=== PATIENT | female | born 1940 | race Caucasian/White ===

== ENCOUNTER → 2016-12-07 | Outpatient (CLI) | payer OTHER | END | disposition home or self-care (01) | LOC: C.PAPS 12:44 | PROVIDERS: ATTEND Obstetrics & Gynecology | DX: Z01.419 Encounter for gynecological examination (general) (routine) without abnormal findings (principal) ==

== ENCOUNTER → 2016-12-07 | Outpatient (CLI) | payer OTHER | END | disposition home or self-care (01) | LOC: C.LABSPEC 15:20 | PROVIDERS: ATTEND Obstetrics & Gynecology | DX: N89.8 Other specified noninflammatory disorders of vagina (principal) ==

== ENCOUNTER → 2017-07-23 | Outpatient (CLI) | payer OTHER ==
--- NOTE | 2017-07-30 07:46 | MAMMOGRAPHY REPORT ---
BILATERAL DIGITAL SCREENING MAMMOGRAM WITH CAD: 07/23/2017 CLINICAL HISTORY: Routine screening. Patient has no complaints. TECHNIQUE: Bilateral CC and MLO views of the breasts were obtained. Current study was also evaluated with a Computer Aided Detection (CAD) system. COMPARISON: Comparison is made to exams dated: 05/30/2016 mammogram, 05/24/2015 mammogram, 03/31/2013 mammogram, 04/20/2014 mammogram, 02/19/2012 mammogram, and 12/18/2010 mammogram - [facility]. BREAST COMPOSITION: The tissue of both breasts is extremely dense, which lowers the sensitivity of m ammography. FINDINGS: This examination is suboptimal due to positioning and lack of posterior tissue on both MLO views and the left CC view in particular, it is difficult to assess the left CC view for the possible cluster of microcalcifications identified on the 04-20-2014 mammogram, for which the patient was doty d back from screening but refused to undergo diagnostic workup. There are a few scattered benign-tylor earing punctate microcalcifications, and no obvious masses, asymmetries, areas of distortion or new c alcifications are identified. However I would like to perform a technical call back to attempt repea t positioning to include more posterior breast tissue for accurate comparison purposes. The breast care center front office manager, Lisa Kidd, called the patient back at 10 AM on 07/29/2017 t o try to obtain repeat views for technical purposes. The patient reported she appreciated the phone call but refused to come back in for additional views. IMPRESSION: ACR BI-RADS CATEGORY 0: INCOMPLETE EVALUATION: NEED ADDITIONAL IMAGING EVALUATION The exam is incomplete for technical reasons as I would like repeat positioning to include more poste rior breast tissue, particularly for reassessment of the left breast on the CC view to ensure the pre viously observed microcalcifications are not increasing or possibly no longer present. However, afte r further discussion on the telephone, the patient declined returning to our office for repositioning with additional views. A letter will also be mailed to the patient. Approximately 10% of breast cancers are not detected with mammography. A negative mammographic report should not delay biopsy if a clinically suggestive mass is present. Rossy Madrigal M.D. ay/:07/29/2017 10:15:15 [employer] Rec[employer]iter: Teodora LARA,R, M, [facility] letter sent: Addl Imaging 0 BI-RADS Code: ACR BI-RADS Category 0: Incomplete Evaluation: Need Additional Imaging Evaluation
== END | disposition home or self-care (01) ==
LOC: C.MAMM 10:23
PROVIDERS: ATTEND Family Medicine
DX: Z12.31 Encounter for screening mammogram for malignant neoplasm of breast (principal)